=== PATIENT | female | born 1985 | race African-American/Black ===

== ENCOUNTER 2017-07-30 03:02 | Observation (INO) | payer SELFPAY ==
[2017-07-29 20:00] VITALS: PULSE 72
[~2017-07-30] VITALS: Ht 167.6 cm; Wt 115.0 kg
[2017-07-30] VITALS (7 sets, daily range): BP systolic 121–141; BP diastolic 65–69; PULSE 60–72; RESP 16–22; TEMP 98.2–98.7; O2SAT 96–99
[2017-07-30] MEDS ORDERED: BIRTH CONTROL (03:11)
[2017-07-30] MEDS ORDERED: SODIUM CHLORIDE 0.9% FLUSH 10 ML FLUSH IVF PRN (03:15)
[2017-07-30] MEDS ORDERED: ASPIRIN 325 MG TAB PO ONE (03:15)
[2017-07-30 03:34] LABS: AUTOMATED NEUTROPHIL # 5.9 TH/MM3 (1.8-7.7); BASOPHIL # 0.1 TH/MM3 (0-0.2); BASOPHIL % 0.7 % (0.0-2.0); EOSINOPHIL # 0.1 TH/MM3 (0-0.4); EOSINOPHIL % 1.4 % (0.0-4.0); HEMATOCRIT 32.4 % (35.0-46.0); HEMO FLAGS DIFF FINAL; LYMPH % 33.8 % (9.0-44.0); LYMPHOCYTE # 3.4 TH/MM3 (1.0-4.8); MEAN CELL VOLUME 84.2 FL (80.0-100.0); MEAN CORPUSCULAR HEMOGLOBIN 28.5 PG (27.0-34.0); MEAN CORPUSCULAR HGB CONC 33.8 % (32.0-36.0); MONO % 5.3 % (0.0-8.0); NEUT % 58.8 % (16.0-70.0); PLATELET COUNT 328 TH/MM3 (150-450); RED BLOOD COUNT 3.84 MIL/MM3 (4.00-5.30); WHITE BLOOD COUNT 10.1 TH/MM3 (4.0-11.0)
--- NOTE | 2017-07-30 03:47 | RADRPT ---
EXAM DATE/TIME: 07/30/2017 03:38 [place] COMPARISON: No previous studies available for comparison. INDICATIONS : Chest pressure and pain. MEDICAL HISTORY : None. SURGICAL HISTORY : None. ENCOUNTER: Initial ACUITY: 1 day PAIN SCORE: 3/10 LOCATION: Bilateral chest FINDINGS: A single view of the chest demonstrates the lungs to be symmetrically aerated without evidence of mas s, infiltrate or effusion. The cardiomediastinal contours are unremarkable. Osseous structures are intact. CONCLUSION: No acute disease. Benitez Izquierdo MD on July 30, 2017 at 3:45 Board Certified Radiologist. This report was verified electronically.
[2017-07-30 04:04] LABS: ANION GAP 7 MEQ/L (5-15); BICARBONATE 25.8 MEQ/L (21.0-32.0); BLOOD UREA NITROGEN 13 MG/DL (7-18); CHLORIDE 107 MEQ/L (98-107); GLOMERULAR FILTRATION RATE 87 ML/MIN (>89); POTASSIUM 3.6 MEQ/L (3.5-5.1); SODIUM (NA) 140 MEQ/L (136-145)
[2017-07-30 04:08] LABS: BETA HCG QUANT LESS THAN 1 MIU/ML (0-5)
--- NOTE | 2017-07-30 04:09 | PD ---
HPI Chief Complaint: Chest Pain Time Seen by Provider: 03:07 Travel History International Travel<30 days: No Contact w/Intl Traveler<30days: No Traveled to known affect area: No History of Present Illness HPI 31-year-old female arrives to the ER by EMS. She complains of a chest pressure. 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 Severity moderate. Minimal shortness of breath reported. She denies similar prior episodes. Seems as though the pain is slightly worse while she is supine. No recent viral illness. No personal history of heart disease. There is no radiation. There is no pleuritic component. PFSH Past Medical History Heart Rhythm Problems: No Cardiac Catheterization: No Cardiovascular Problems: No High Cholesterol: No Congestive Heart Failure: No Diabetes: No Heparin Induced Thrombocytopen: No Hypertension: No Myocardial Infarction: No ?: Not : 1 Para: 1 Past Surgical History Section: Yes Coronary Artery Bypass Graft: No Social History Alcohol Use: No Tobacco Use: No Substance Use: No Allergies-Medications (Allergen,Severity, Reaction): Coded Allergies: No Known Allergies (Verified , 07/30/17) Reported Meds & Prescriptions Reported Meds & Active Scripts Active Reported [ Control ] Review of Systems Except as stated in HPI: all other systems reviewed are Neg General / Constitutional: No: Fever Cardiovascular: Positive: Chest Pain or Discomfort Physical Exam Narrative GENERAL: 31-year-old female pleasant well-nourished well-developed SKIN: Warm and dry. HEAD: Atraumatic. Normocephalic. EYES: Pupils equal and round. No scleral icterus. No injection or drainage. ENT: No nasal bleeding or discharge. Mucous membranes pink and moist. NECK: Trachea midline. No JVD. CARDIOVASCULAR: Regular rate and rhythm. RESPIRATORY: No accessory muscle use. Clear to auscultation. Breath sounds equal bilaterally. GASTROINTESTINAL: Abdomen soft, non-tender, nondistended. Hepatic and splenic margins not palpable. MUSCULOSKELETAL: Extremities without clubbing, cyanosis, or edema. No obvious deformities. NEUROLOGICAL: Awake and alert. No obvious cranial nerve deficits. Motor grossly within normal limits. Five out of 5 muscle strength in the arms and legs. Normal speech. PSYCHIATRIC: Appropriate mood and affect; insight and judgment normal. Data Data Last Documented VS Vital Signs Date Time Temp Pulse Resp B/P (MAP) Pulse Ox O2 Delivery O2 Flow Rate FiO2 07/30/17 03:17 99 Room Air 07/30/17 03:05 98.7 71 22 Vital signs reviewed 141/65 Orders Orders Electrocardiogram (07/30/17 03:14) Basic Metabolic Panel (Bmp) (07/30/17 03:14) Complete Blood Count With Diff (07/30/17 03:14) Troponin I (07/30/17 03:14) Chest, Single Ap (07/30/17 03:14) Ecg Monitoring (07/30/17 03:14) Bilateral Bp Monitoring (07/30/17 03:14) Iv Access Insert/Monitor (07/30/17 03:14) Oximetry (07/30/17 03:14) Oxygen Administration (07/30/17 03:14) Aspirin (Aspirin) (07/30/17 03:15) Sodium Chloride 0.9% Flush (Ns Flush) (07/30/17 03:15) Ed Urine Pregnancytest Poc (07/30/17 03:14) Beta Hcg (Quant/Titer) (07/30/17 03:14) Westergren Sedimentation Rate (07/30/17 03:14) Admit Order (Ed Use Only) (07/30/17 05:18) Activity Bed Rest With Brp (07/30/17 05:18) Vital Signs (Adult) Q4H (07/30/17 05:18) Cardiac Rhythm .As Directed (07/30/17 05:18) Notify Dr: Other .PRN (07/30/17 05:18) Notify Parameters (07/30/17 05:18) Resp Oxygen Nasal Cannula (07/30/17 ) Ckmb (Isoenzyme) Profile (07/30/17 05:18) Ckmb (Isoenzyme) Profile (07/30/17 08:18) Troponin I (07/30/17 05:18) Troponin I (07/30/17 08:18) Electrocardiogram (07/30/17 05:18) Electrocardiogram (07/30/17 08:18) ^ Obtain (07/30/17 05:18) Sodium Chloride 0.9% Flush (Ns Flush) (07/30/17 05:30) Sodium Chloride 0.9% Flush (Ns Flush) (07/30/17 09:00) Morphine Inj (Morphine Inj) (07/30/17 05:30) Nitroglycerin Sl (Nitrostat Sl) (07/30/17 05:30) Aspirin (Aspirin) (07/30/17 09:00) Punch Machine Hand / Telemetry MATTHEW.Q8H (07/30/17 05:18) Labs Laboratory Tests Test 07/30/17 03:25 White Blood Count 10.1 TH/MM3 Red Blood Count 3.84 MIL/MM3 Hemoglobin 10.9 GM/DL Hematocrit 32.4 % Mean Corpuscular Volume 84.2 FL Mean Corpuscular Hemoglobin 28.5 PG Mean Corpuscular Hemoglobin Concent 33.8 % Red Cell Distribution Width 15.0 % Platelet Count 328 TH/MM3 Mean Platelet Volume 6.6 FL Neutrophils (%) (Auto) 58.8 % Lymphocytes (%) (Auto) 33.8 % Monocytes (%) (Auto) 5.3 % Eosinophils (%) (Auto) 1.4 % Basophils (%) (Auto) 0.7 % Neutrophils # (Auto) 5.9 TH/MM3 Lymphocytes # (Auto) 3.4 TH/MM3 Monocytes # (Auto) 0.5 TH/MM3 Eosinophils # (Auto) 0.1 TH/MM3 Basophils # (Auto) 0.1 TH/MM3 CBC Comment DIFF FINAL Differential Comment Erythrocyte Sedimentation Rate 33 mm/hr Blood Urea Nitrogen 13 MG/DL Creatinine 0.92 MG/DL Random Glucose 92 MG/DL Calcium Level 8.4 MG/DL Sodium Level 140 MEQ/L Potassium Level 3.6 MEQ/L Chloride Level 107 MEQ/L Carbon Dioxide Level 25.8 MEQ/L Anion Gap 7 MEQ/L Estimat Glomerular Filtration Rate 87 ML/MIN Troponin I LESS THAN 0.02 NG/ML Human Chorionic Gonadotropin, Quant LESS THAN 1 MIU/ML MDM Medical Decision Making Medical Screen Exam Complete: Yes Emergency Medical Condition: Yes Medical Record Reviewed: Yes Differential Diagnosis NSTEMI, unstable angina, coronary vasospasm, PE, PTX, aortic dissection, pericarditis, myocarditis, endocarditis, PNA, esophageal disease, aneurysm, musculoskeletal etiologies, anxiety, cocaine/sympathomimetic abuse Narrative Course CBC & BMP Diagram 07/30/17 03:25 Calcium Level 8.4 L Troponin less than 0.02 ESR 33 EKG reveals sinus rhythm with a rate of [address] elevations consistent with pericarditis The patient will be sent to the chest pain center for chest pain center protocol and evaluation by cardiology. Diagnosis Primary Impression: Chest pain Qualified Codes: R07.9 - Chest pain, unspecified Admitting Information Admitting Physician Requests: Sina Mercado MD Jul 30, 2017 04:09
[2017-07-30] MEDS ORDERED: MORPHINE SULFATE 4 MG/ML INJ IV PRN (05:30)
[2017-07-30] MEDS ORDERED: SODIUM CHLORIDE 0.9% FLUSH 10 ML FLUSH IV FLUSH PRN (05:30)
[2017-07-30] MEDS ORDERED: NITROGLYCERIN 0.4 MG SL 25 TABS/BTL SL PRN (05:30)
[2017-07-30 06:42] LABS: CREATINE KINASE 74 U/L (26-192)
[2017-07-30] MEDS ORDERED: SODIUM CHLORIDE 0.9% FLUSH 10 ML FLUSH IV FLUSH SCH (09:00)
[2017-07-30] MEDS ORDERED: ASPIRIN 325 MG TAB PO SCH (09:00)
[2017-07-30 09:55] LABS: CREATINE KINASE 76 U/L (26-192)
[2017-07-30] MEDS ORDERED: ACETAMINOPHEN 500 MG CPLT PO PRN (11:30)
--- NOTE | 2017-07-30 12:51 | HHI.DCPOC ---
Discharge Care Plan Diagnosis: (1) Atypical chest pain Goals to Promote Your Health * To prevent worsening of your condition and complications * To maintain your health at the optimal level Directions to Meet Your Goals Take your medications as prescribed Follow your dietary instruction Follow activity as directed Keep your appointments as scheduled Take your immunizations and boosters as scheduled If your symptoms worsen call your PCP, if no PCP go to Urgent Care Center or Emergency Room Smoking is Dangerous to Your Health. Avoid second hand smoke Call the 24-hour hour crisis hotline for domestic abuse at [facility] Jul 30, 2017 12:51
--- NOTE | 2017-07-30 12:57 | EKG ---
Date Performed: 07/30/2017 Time Performed: 11:15:48 PTAGE: 31 years EKG: Sinus rhythm NORMAL ECG NO PREVIOUS TRACING DOCTOR: Florentino Mcdonnell Interpretating Date/Time 07/30/2017 12:56:32
--- NOTE | 2017-07-30 12:57 | EKG ---
Date Performed: 07/30/2017 Time Performed: 06:09:31 PTAGE: 31 years EKG: Sinus rhythm NORMAL ECG PREVIOUS TRACING : 07/30/2017 03.10 DOCTOR: Florentino Mcdonnell Interpretating Date/Time 07/30/2017 12:56:55
--- NOTE | 2017-07-30 13:00 | EKG ---
Date Performed: 07/30/2017 Time Performed: 03:10:47 PTAGE: 31 years EKG: Sinus rhythm NORMAL ECG PREVIOUS TRACING : 07/02/2009 14.02 DOCTOR: Florentino Mcdonnell Interpretating Date/Time 07/30/2017 13:00:09
--- NOTE | 2017-07-30 13:09 | EKG ---
Date Performed: 07/30/2017 Time Performed: 09:26:36 PTAGE: 31 years EKG: Sinus rhythm NORMAL ECG PREVIOUS TRACING : 07/30/2017 06.09 DOCTOR: Florentino Mcdonnell Interpretating Date/Time 07/30/2017 13:07:00
--- NOTE | 2017-07-30 13:13 | TR ---
Date Performed: 07/30/2017 Time Performed: 12:17:08 DOCTOR: Florentino Mcdonnell DRUG LIST: CLINICAL HISTORY: REASON FOR TEST: REASON FOR ENDING: OBSERVATION: CONCLUSION: PT EXERCISED USING CATE PROTOCOL FOR Total Exercise Time=6:01 Maximum XR=218 % Max HR Achieved=92.0% Resting AI=932/78. EXERCISE GIOVANNY FAIR. UNABLE TO CHECK B/P DURING EXERCISE SECONDARY . TEST ENDED PATIENT WELL EXCEEDED GOAL/LEG FATIGUE. NO CHEST PAIN. AT PEAK EXERCISE, RAPIDLY UPSL OPING ST-T SEGMENTS WITHOUT EVIDENCE OF ISCHEMIA. RECOVERY UNREMARKABLE. COMMENTS: LOW PROBABILITY OF SIG CAD CAUSE OF CURRENT EVALUATION
--- NOTE | 2017-07-30 14:14 | MH ---
cc: ATILIO LAURENT MD DATE OF ADMISSION: 07/30/2017 CHIEF COMPLAINT: Chest discomfort. 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 this morning had sudden onset of diffuse chest discomfort which she describes as a spasm, like a muscular cramp, that occurred involving her entire chest "whole breast cage". The severity was 7/10. There was no radiation. It was constant. She had associated shortness of breath but no nausea or vomiting or diaphoresis. She stepped outside of her guard post to get some fresh air but the discomfort persisted and she called 9-1-1. She noted that when she was speaking to the fire department, she seemed to have slurred speech but denies any numbness or weakness. During that episode, although she did feel quite tremulous, since that time the discomfort has persisted but changed from a muscle spasm-like pain to a diffuse heaviness which reduced from 7/10 to 5/10 currently. PAST MEDICAL HISTORY: Her past medical history is largely negative. She has no hypertension, no diabetes, no hyperlipidemia, and no prior episodes of similar issues. FAMILY HISTORY: Father 52 has known coronary disease. Mother age 54 living and well. One brother from a gunshot. Two sisters 18 and 23 with no known problems. SOCIAL HISTORY: . Has three children. She smokes an occasional cigarette but no regular use. She denies use of alcohol or any illicit drugs. She does note that they have been under considerable stress since the of her last child. Her is present with her at the time of the exam. MEDICATIONS: The only thing she takes currently is a control pill. ALLERGIES: SHE DENIES ANY ALLERGIES. REVIEW OF SYSTEMS: GENERAL: Unremarkable. HEAD, EYES, EARS, NOSE, THROAT: She has some diffuse discomfort in her right neck area that feels like a muscle tightness. CHEST: No shortness of breath other than the current presentation. CARDIOVASCULAR: Unremarkable. ABDOMEN: No gastrointestinal complaints, diarrhea or nausea or vomiting or pain. GENITOURINARY: Unremarkable. NEUROLOGIC: Other than her current episode of questionably slurred speech, it has been entirely unremarkable. PHYSICAL EXAMINATION: GENERAL: Well-nourished, well-developed but somewhat obese black female in no acute distress. SKIN: Warm, dry, however, she has multiple tattoos, she states 36 in total. She also has a nose stud in the right naris. HEAD, EYES, EARS, NOSE, THROAT: Head is normocephalic and atraumatic. No bruits. Eyes are pupils equal, round and reactive to light. Extraocular muscles intact. The sclerae are clear. She has colored contact lenses in place. Mouth - The mucous membranes are moist. Tongue is well-papillated. No lesions. No masses. Tongue stud is noted. NECK: The neck is supple. No jugular venous distention, masses, nodes or bruits. The right neck in the area she complains of was carefully palpated. No goiter or masses were found. CHEST: Clear to auscultation. No rales, wheezes or rhonchi. Good breath sounds. CARDIAC: PMI is not palpable due to her obesity. S1 and S2 clearly audible. No murmurs, rubs or gallops. ABDOMEN: The abdomen is obese, soft, nontender and nondistended. No guarding or rebound. No hepatosplenomegaly. EXTREMITIES: No cyanosis, clubbing or edema. NEUROLOGIC: Cranial nerves were tested individually and are intact. Motor strength is good and symmetric. LABS: Currently unremarkable. EKGS: Unremarkable. ASSESSMENT: Atypical chest pain, questionable slurred speech, obesity, occasional cigarette use, stress. PLAN: 1. Rule out by protocol. 2. If ruled out, carry out exercise stress test. MD CAROLYN Staples/[place] /11:53 AM /1:57 PM
== END 2017-07-30 13:48 | disposition home or self-care (01) ==
LOC: NEPE 03:02 → NEDA 05:22 → NEPGCP 07:14
PROVIDERS: ADMIT Internal Medicine Interventional Cardiology; ATTEND Internal Medicine Interventional Cardiology
DX: R07.89 Other chest pain (principal); F17.210 Nicotine dependence, cigarettes, uncomplicated
CPT/HCPCS: 71010; 80048; 82550; 84484; 84702; 84703; 85025; 85652; 93005; 93017; 99285; G0378